=== PATIENT | female | born 1975 | race Caucasian/White ===

== ENCOUNTER 2017-05-16 17:25 | Emergency (ER) | payer SELFPAY ==
[~2017-05-16] VITALS: Ht 165.1 cm; Wt 54.4 kg
[2017-05-16 17:28] VITALS: Ht 165.1 cm; Wt 54.4 kg
[2017-05-16 18:57] VITALS: BP 110/91
== END 2017-05-16 18:57 | disposition home or self-care (01) ==
LOC: ED 17:25
DX: S13.4XXA Sprain of ligaments of cervical spine, initial encounter (principal); S00.83XA Contusion of other part of head, initial encounter; V43.92XA Unspecified car occupant injured in collision with other type car in traffic accident, initial encounter; W22.10XA Striking against or struck by unspecified automobile airbag, initial encounter; Y93.89 Activity, other specified; Y92.89 Other specified places as the place of occurrence of the external cause; Y99.8 Other external cause status